=== PATIENT | female | born 1990 | race Caucasian/White ===

== ENCOUNTER → 2016-09-06 | Outpatient (CLI) | payer OTHER ==
[~2016-09-06] MED LIST: MOTRIN400 MG PO; NKHM PO; PREDNICOT20 MG PO; PREDNISONE20 MG PO; VICO75300 PO; ZITHROMAX Z PA250 MG PO
== END | disposition home or self-care (01) ==
LOC: US 14:42
DX: R20.8 Other disturbances of skin sensation (principal)

== ENCOUNTER → 2016-09-22 | Outpatient (CLI) | payer OTHER | END | disposition home or self-care (01) | LOC: US 09:22 | DX: K80.20 Calculus of gallbladder without cholecystitis without obstruction (principal); R14.0 Abdominal distension (gaseous) ==

== ENCOUNTER 2016-12-18 14:02 | Emergency (ER) | payer OTHER ==
[~2016-12-18] VITALS: Wt 82.1 kg
[2016-12-18] MEDS ORDERED: SPRINTEC 35 MCG1 TA1 PO (14:08)
[2016-12-18] MEDS ORDERED: ACTIGALL300 MG PO (14:09)
[2016-12-18 14:29] LABS: BASO % 0.5 % (0.0-1.0); EOS % 0.5 % (1.0-4.0); HEMATOCRIT 41.4 % (37.0-47.0); HEMOGLOBIN 13.5 g/dl (12.0-16.0); LYMPH # 1.7 10*3/uL (1.3-4.4); LYMPH % 28.7 % (27.0-41.0); MEAN CORPUSCULAR HGB 27.4 pg (27.0-31.0); MEAN CORPUSCULAR HGB CONC 32.6 g/dl (33.0-37.0); MEAN PLATELET VOLUME 11.9 fl (9.6-12.3); MONO # 0.4 10*3/uL (0.1-1.0); MONO % 6.7 % (3.0-9.0); NEUT # 3.7 10*3/uL (2.3-7.9); NEUT % 63.4 % (47.0-73.0); PLATELET COUNT AUTOMATED 174 10*3/uL (130-400); RED BLOOD COUNT 4.93 10*6/uL (4.10-5.10); RED CELL DISTRI WIDTH 12.8 % (0-14.5); WHITE BLOOD COUNT 5.8 10*3/uL (4.8-10.8)
[2016-12-18 14:34] LABS: BILIRUBIN NEGATIVE (NEGATIVE); BLOOD 3+ (NEGATIVE); CLARITY SL CLOUDY (CLEAR); COLOR YELLOW (YELLOW); GLUCOSE NEGATIVE (NEGATIVE); KETONE NEGATIVE (NEGATIVE); LEUKO ESTERASE TRACE (NEGATIVE); NITRITE NEGATIVE (NEGATIVE); PROTEIN NEGATIVE (NEGATIVE); SPECIFIC GRAVITY <= 1.005 (1.005-1.030); UROBILINOGEN 0.2 E.U./dl (0.2-1.0)
[2016-12-18 14:43] LABS: BACTERIA TRACE; RBC TNTC rbc/hpf (0-2); URINE REFLEX COMMENT YES (NO); WBC 0-2 wbc/hpf (0-5)
[2016-12-18 14:45] LABS: ALBUMIN 3.8 gm/dl (3.1-4.5); ALKALINE PHOSPHATASE 65 U/L (45-117); BILIRUBIN, TOTAL 0.3 mg/dl (0.2-1.0); BUN 10 mg/dl (7-24); CARBON DIOXIDE 27 mmol/L (21-32); CHLORIDE 104 mmol/L (98-107); EST GLOM FILT AFRICAN AMERICAN > 60 ml/min; GLUCOSE 92 mg/dL (65-99); POTASSIUM 3.8 mmol/L (3.5-5.1); SGOT/AST 16 IU/L (3-35); SGPT/ALT 17 U/L (12-78); SODIUM 140 mmol/L (136-145); TOTAL PROTEIN 7.6 gm/dL (6.4-8.2)
[2016-12-18] MEDS ORDERED: ZOFRAN4 MG PO (14:50)
== END 2016-12-18 15:06 | disposition home or self-care (01) ==
LOC: ED 14:02
PROVIDERS: Nurse Practitioner Family
DX: K80.20 Calculus of gallbladder without cholecystitis without obstruction (principal); Z79.899 Other long term (current) drug therapy

== ENCOUNTER → 2017-01-27 | Outpatient (CLI) | payer OTHER ==
[~2017-01-27] MED LIST changes: +ACTIGALL300 MG PO; +NORCO 7.5-3251 EACH PO; +SPRINTEC 35 MCG1 TA1 PO; +ZOFRAN4 MG PO
[2017-01-27 11:11] LABS: BASO % 0.4 % (0.0-1.0); EOS % 0.7 % (1.0-4.0); HEMATOCRIT 40.5 % (37.0-47.0); HEMOGLOBIN 13.5 g/dl (12.0-16.0); LYMPH # 1.3 10*3/uL (1.3-4.4); LYMPH % 24.1 % (27.0-41.0); MEAN CELL VOLUME 83.9 fl (81.0-99.0); MEAN CORPUSCULAR HGB CONC 33.3 g/dl (33.0-37.0); MEAN PLATELET VOLUME 11.7 fl (9.6-12.3); MONO # 0.3 10*3/uL (0.1-1.0); MONO % 6.4 % (3.0-9.0); NEUT # 3.7 10*3/uL (2.3-7.9); NEUT % 68.2 % (47.0-73.0); PLATELET COUNT AUTOMATED 135 10*3/uL (130-400); RED BLOOD COUNT 4.83 10*6/uL (4.10-5.10); RED CELL DISTRI WIDTH 12.8 % (0-14.5); WHITE BLOOD COUNT 5.4 10*3/uL (4.8-10.8)
[2017-01-27 11:18] LABS: BILIRUBIN NEGATIVE (NEGATIVE); BLOOD NEGATIVE (NEGATIVE); CLARITY SL CLOUDY (CLEAR); COLOR YELLOW (YELLOW); GLUCOSE NEGATIVE (NEGATIVE); KETONE 1+ (NEGATIVE); LEUKO ESTERASE 2+ (NEGATIVE); NITRITE NEGATIVE (NEGATIVE); PH 6.5 (5.0-9.0); PROTEIN NEGATIVE (NEGATIVE); SPECIFIC GRAVITY 1.015 (1.005-1.030); UROBILINOGEN 0.2 E.U./dl (0.2-1.0)
[2017-01-27 11:27] LABS: PROTHROMBIN TIME 10.2 SECONDS (9.0-12.4)
[2017-01-27 11:28] LABS: ALBUMIN 3.7 gm/dl (3.1-4.5); ALKALINE PHOSPHATASE 58 U/L (45-117); BILIRUBIN, DIRECT < 0.1 mg/dL (0.0-0.2); BILIRUBIN, TOTAL 0.4 mg/dl (0.2-1.0); BUN 9 mg/dl (7-24); CARBON DIOXIDE 27 mmol/L (21-32); CHLORIDE 104 mmol/L (98-107); EST GLOM FILT AFRICAN AMERICAN > 60 ml/min; GLUCOSE 86 mg/dL (65-99); POTASSIUM 4.2 mmol/L (3.5-5.1); SGOT/AST 19 IU/L (3-35); SGPT/ALT 22 U/L (12-78); SODIUM 138 mmol/L (136-145); TOTAL PROTEIN 7.3 gm/dL (6.4-8.2)
[2017-01-27 11:39] LABS: BACTERIA TRACE; RBC 0-2 rbc/hpf (0-2); WBC 16-20 wbc/hpf (0-5)
== END | disposition home or self-care (01) ==
LOC: LAB 09:20
PROVIDERS: Surgery
DX: Z01.818 Encounter for other preprocedural examination (principal); K80.20 Calculus of gallbladder without cholecystitis without obstruction

== ENCOUNTER → 2017-02-02 | Day surgery (SDC) | payer OTHER ==
[2017-02-02] VITALS (8 sets, daily range): BP systolic 129–141; BP diastolic 71–87
[~2017-02-02] VITALS: Ht 165.1 cm; Wt 79.8 kg
[~2017-02-02] MED LIST changes: +NORCO 5-325 TA1 EACH PO
--- NOTE | ~2017-02-02 | O ---
[place], [place] OPERATIVE NOTE NAME: ELAYNE BURR [facility] #: [id number] UNIT #: [id number] ROOM: DOCTOR: CAPO ALVARADO MD BIRTHDATE: [birth year] DOS: 02/02/2017 PREOPERATIVE DIAGNOSIS: Symptomatic gallstones. POSTOPERATIVE DIAGNOSIS: Chronic calculous cholecystitis. PROCEDURE: Laparoscopic cholecystectomy. SURGEON: Capo Alvarado MD ANIMAL TRAPPER: MS3. ANESTHESIA: General with endotracheal intubation. INDICATIONS: This is a 26-year-old lady with a longstanding history of right upper quadrant pain associated with gallstones, who is here for the above-mentioned procedure. The procedure and its complications were explained to the patient in detail preoperatively. Complications that were discussed included but were not limited to bleeding, infection, hematoma/seroma/abscess formation, prolonged postoperative pain, damage to underlying vital structures, inadvertent injury to the common bile duct, biloma formation and incisional hernia formation. She agreed to proceed. DESCRIPTION OF PROCEDURE: After identifying the patient, the patient was brought to the operating suite and laid in the supine position. After induction of general anesthesia, timeout procedure was called and the parts were then painted and draped in the usual sterile fashion. An incision in a transverse fashion was made below the umbilicus. The skin and the subcutaneous tissue were incised. The fascia was incised vertically and 2 stay sutures with 0 Vicryl were taken on either side. A 12 mm Neo port was introduced into the peritoneal cavity and a pneumoperitoneum was created. Under direct vision, an epigastric incision of 10 mm and two 5 mm incisions were made in the right upper quadrant and appropriate size ports were introduced. The gallbladder was retracted superiorly and laterally and the cystic duct and the cystic artery were carefully dissected in order to better visualize the cystic duct. The top-down procedure was used in order to better mobilize the gallbladder. Thereafter, the cystic artery was clipped 3 times and cut between the first and the second clip. After adequate lysis of adhesions was performed, the cystic duct was similarly clipped 3 times and cut between the first and the second clip. Note should be made that the critical view of safety was obtained before the clipping and causing was performed. After the gallbladder was removed from the bed of the gallbladder, it was placed in an EndoCatch bag and removed from the peritoneal cavity and sent for histopathological diagnosis. Thereafter, hemostasis was confirmed in the liver bed and irrigation was used, irrigation fluid was sucked away and hemostasis was confirmed. Thereafter, the right upper quadrant and epigastric ports were removed and there was no bleeding seen. The umbilical port was also removed and the 2 stay sutures were tied together and an additional stitch was taken in order to approximate the fascia with 0 Vicryl. Thereafter, the edges of the skin were infiltrated with 1% plain lidocaine and the edges were then approximated with the help of 4-0 Vicryl in a subcuticular [place], [place] OPERATIVE NOTE NAME: ELAYNE BURR UNIT #: [id number] ROOM: DOCTOR: CAPO ALVARADO MD BIRTHDATE: [birth year] running fashion. Dressings were placed. The patient tolerated the procedure well. There were no complications. Dr. Capo Alvarado, the attending surgeon, was present throughout the operating case. After extubation, the patient was taken in a stable fashion to the recovery room. Capo Alvarado MD CM:OPRECORD:OPERATIVE NOTE [id number] CAPO ALVARADO MD 02/02/17 1008 interface
== END | disposition home or self-care (01) ==
LOC: SDC 01-27 09:30
DX: K80.10 Calculus of gallbladder with chronic cholecystitis without obstruction (principal); I10 Essential (primary) hypertension; Z98.890 Other specified postprocedural states; Z87.891 Personal history of nicotine dependence

== ENCOUNTER 2017-02-08 20:15 | Emergency (ER) | payer OTHER ==
[~2017-02-08] VITALS: Ht 165.1 cm; Wt 79.4 kg
[2017-02-08] MEDS ORDERED: CEPHALEXIN500 M1 PO (21:28)
== END 2017-02-08 22:28 | disposition home or self-care (01) ==
LOC: ED 20:15
DX: L08.89 Other specified local infections of the skin and subcutaneous tissue (principal); Z98.890 Other specified postprocedural states; Z98.51 Tubal ligation status; Z79.899 Other long term (current) drug therapy

== ENCOUNTER → 2017-03-27 | Outpatient (CLI) | payer OTHER ==
[~2017-03-27] MED LIST changes: +CEPHALEXIN500 M1 PO
== END | disposition home or self-care (01) ==
LOC: US 12:29
DX: R10.9 Unspecified abdominal pain (principal); M54.9 Dorsalgia, unspecified

== ENCOUNTER → 2017-04-04 | Outpatient (CLI) | payer OTHER | END | disposition home or self-care (01) | LOC: US 03-31 02:13 | DX: R10.9 Unspecified abdominal pain (principal); M54.9 Dorsalgia, unspecified ==

== ENCOUNTER 2018-01-10 20:30 | Emergency (ER) | payer OTHER ==
[~2018-01-10] VITALS: Ht 165.1 cm; Wt 74.8 kg
== END 2018-01-10 21:00 | disposition home or self-care (01) ==
LOC: ED 20:30
DX: H00.025 Hordeolum internum left lower eyelid (principal); Z79.899 Other long term (current) drug therapy; Z98.51 Tubal ligation status

== ENCOUNTER → 2018-05-23 | Outpatient (CLI) | payer OTHER | END | disposition home or self-care (01) | LOC: US 14:00 | DX: N94.6 Dysmenorrhea, unspecified (principal); N92.1 Excessive and frequent menstruation with irregular cycle ==

== ENCOUNTER → 2018-12-26 | Outpatient (CLI) | payer OTHER | END | disposition home or self-care (01) | LOC: RAD 10:52 | DX: M54.5 Low back pain (principal) ==

== ENCOUNTER 2020-04-06 06:56 | Emergency (ER) | payer OTHER ==
[~2020-04-06] VITALS: Ht 165.1 cm; Wt 90.7 kg
[2020-04-06] MEDS ORDERED: TYLOPHEN500 M2 PO (08:25)
== END 2020-04-06 09:05 | disposition home or self-care (01) ==
LOC: ED 06:56
DX: S80.02XA Contusion of left knee, initial encounter (principal); Z79.899 Other long term (current) drug therapy; V49.9XXA Car occupant (driver) (passenger) injured in unspecified traffic accident, initial encounter; Y93.89 Activity, other specified; Y92.89 Other specified places as the place of occurrence of the external cause; Y99.8 Other external cause status

== ENCOUNTER 2021-01-10 11:54 | Emergency (ER) | payer OTHER ==
[~2021-01-10] VITALS: Ht 165.1 cm; Wt 92.5 kg
[~2021-01-10 11:54] MED LIST changes: +TYLOPHEN500 M2 PO
[2021-01-10] MEDS ORDERED: NAPROXEN250 MG PO (12:36)
[2021-01-10] MEDS ORDERED: TYLENOL325 M1 PO (12:36)
== END 2021-01-10 12:50 | disposition home or self-care (01) ==
LOC: ED 11:54
DX: M79.642 Pain in left hand (principal); M25.532 Pain in left wrist; M79.645 Pain in left finger(s); R20.2 Paresthesia of skin; Z79.899 Other long term (current) drug therapy; Z98.890 Other specified postprocedural states; Z79.2 Long term (current) use of antibiotics; Z98.51 Tubal ligation status; X58.XXXA Exposure to other specified factors, initial encounter; Y93.89 Activity, other specified; Y92.89 Other specified places as the place of occurrence of the external cause; Y99.8 Other external cause status

== ENCOUNTER → 2022-03-15 | Outpatient (CLI) | payer OTHER ==
[~2022-03-15] MED LIST changes: +NAPROXEN250 MG PO; +TYLENOL325 M1 PO
== END | disposition home or self-care (01) ==
LOC: CARD 03-09 09:30
PROVIDERS: ATTEND Physician Assistant
DX: I49.1 Atrial premature depolarization (principal)